=== PATIENT | female | born 1990 | race African-American/Black ===

== ENCOUNTER 2022-11-08 16:33 | Outpatient (CLI) | payer BC, SELFPAY | END 2022-11-08 16:34 | disposition home or self-care (01) | PROVIDERS: PCP Physician Assistant Medical; Visit Provider Physician Assistant Medical | DX: Z01.419 Encounter for gynecological examination (general) (routine) without abnormal findings (principal); E11.9 Type 2 diabetes mellitus without complications; E66.9 Obesity, unspecified; I10 Essential (primary) hypertension | CPT/HCPCS: 80053; 82088; 84244; 84443; 87086 ==

== ENCOUNTER 2022-11-26 09:29 | Outpatient (CLI) | payer BC, SELFPAY | END 2022-11-26 09:30 | disposition home or self-care (01) | PROVIDERS: PCP Physician Assistant Medical; Visit Provider Physician Assistant Medical | DX: E11.9 Type 2 diabetes mellitus without complications (principal); E66.9 Obesity, unspecified; I10 Essential (primary) hypertension | CPT/HCPCS: 82088; 84244 ==

== ENCOUNTER 2022-12-13 07:09 | Outpatient (CLI) | payer BC, SELFPAY ==
--- NOTE | 2022-12-13 07:15 | CRLHL7_ITS ---
For Patients: As a result of the Century Cures Act, medical imaging exams and procedure reports are released immediately into your electronic medical record. You may view this report before your referring provider. If you have questions, please contact your health care provider. INDICATION: Hypertension TECHNIQUE: Grayscale, color Doppler and power Doppler ultrasound exam of the kidneys and renal arteries performed. COMPARISON: None available FINDINGS: BILATERAL RENAL ARTERY DUPLEX ULTRASOUND ABDOMINAL AORTA: Peak systolic velocity = artifactually elevated at 336 cm/s. No aortic aneurysm. RIGHT KIDNEY: 12.4 cm in length. There is no hydronephrosis. Peak systolic velocity = 209 cm/second Renal artery to aortic peak systolic velocity ratio = 0.6, artifactual Resistive indices: 0.6 Renal vein = patent LEFT KIDNEY: 12.0 cm in length. There is no hydronephrosis. Peak systolic velocity = 204 cm/second Renal artery to aortic peak systolic velocity ratio = 0.6, artifactual Resistive indices: 0.6 Renal vein = patent IMPRESSION: Mildly elevated velocities within the mid and distal renal arteries bilaterally. Further evaluation with CTA or MRA recommended. The aortic peak systolic velocity is inaccurate making the renal artery ratios invalid. Dictated by Man Hudson MD @ 12/13/2022 10:59:10 AM (Electronically Signed)
== END 2022-12-13 07:10 | disposition home or self-care (01) ==
PROVIDERS: PCP Physician Assistant Medical; Visit Provider Physician Assistant Medical
DX: I10 Essential (primary) hypertension (principal)
CPT/HCPCS: 76775; 93975

== ENCOUNTER 2023-08-29 10:05 | Outpatient (CLI) | payer BC, SELFPAY | END 2023-08-29 10:06 | disposition home or self-care (01) | LOC: NFLDREF 09-04 20:17 | PROVIDERS: PCP Physician Assistant Medical; Referring Provider Physician Assistant Medical; Visit Provider Physician Assistant Medical | DX: Z00.00 Encounter for general adult medical examination without abnormal findings (principal); E11.9 Type 2 diabetes mellitus without complications; E66.9 Obesity, unspecified; I10 Essential (primary) hypertension; Z13.6 Encounter for screening for cardiovascular disorders | CPT/HCPCS: 80053; 80061 ==

== ENCOUNTER 2023-12-05 08:53 | Outpatient (CLI) | payer BC, SELFPAY | END 2023-12-05 08:54 | disposition home or self-care (01) | LOC: WOUND 08:53 | PROVIDERS: PCP Physician Assistant Medical; Visit Provider Nurse Practitioner Family | DX: E11.621 Type 2 diabetes mellitus with foot ulcer (principal); G99.0 Autonomic neuropathy in diseases classified elsewhere; L97.522 Non-pressure chronic ulcer of other part of left foot with fat layer exposed; Z79.4 Long term (current) use of insulin; Z79.84 Long term (current) use of oral hypoglycemic drugs | CPT/HCPCS: 11042; 87070; 87186; G0463 ==

== ENCOUNTER 2023-12-12 09:59 | Outpatient (CLI) | payer BC, SELFPAY | END 2023-12-12 10:00 | disposition home or self-care (01) | LOC: WOUND 10:00 | PROVIDERS: PCP Physician Assistant Medical; Visit Provider Nurse Practitioner Family | DX: E11.621 Type 2 diabetes mellitus with foot ulcer (principal); L97.522 Non-pressure chronic ulcer of other part of left foot with fat layer exposed; G99.0 Autonomic neuropathy in diseases classified elsewhere; Z79.4 Long term (current) use of insulin; Z79.84 Long term (current) use of oral hypoglycemic drugs | CPT/HCPCS: 97597 ==

== ENCOUNTER 2023-12-19 09:30 | Outpatient (CLI) | payer BC, SELFPAY | END 2023-12-19 09:31 | disposition home or self-care (01) | LOC: WOUND 09:30 | PROVIDERS: PCP Physician Assistant Medical; Visit Provider Nurse Practitioner Family | DX: E11.621 Type 2 diabetes mellitus with foot ulcer (principal); L97.528 Non-pressure chronic ulcer of other part of left foot with other specified severity; G99.0 Autonomic neuropathy in diseases classified elsewhere; Z79.4 Long term (current) use of insulin; Z79.84 Long term (current) use of oral hypoglycemic drugs | CPT/HCPCS: 97602; G0463 ==

== ENCOUNTER 2024-01-02 09:59 | Outpatient (CLI) | payer BC, SELFPAY | END 2024-01-02 10:00 | disposition home or self-care (01) | LOC: WOUND 09:59 | PROVIDERS: PCP Physician Assistant Medical; Visit Provider Nurse Practitioner Family | DX: E11.621 Type 2 diabetes mellitus with foot ulcer (principal); L97.528 Non-pressure chronic ulcer of other part of left foot with other specified severity; Z79.4 Long term (current) use of insulin; Z79.84 Long term (current) use of oral hypoglycemic drugs; Z79.85 Long-term (current) use of injectable non-insulin antidiabetic drugs | CPT/HCPCS: 97597 ==

== ENCOUNTER 2024-01-09 15:15 | Outpatient (CLI) | payer BC, SELFPAY | END 2024-01-09 15:16 | disposition home or self-care (01) | LOC: NFLDREF 01-10 06:04 | PROVIDERS: PCP Physician Assistant Medical; Visit Provider Physician Assistant Medical | DX: E11.9 Type 2 diabetes mellitus without complications (principal); I10 Essential (primary) hypertension | CPT/HCPCS: 82043; 82570 ==

== ENCOUNTER 2024-01-23 10:05 | Outpatient (CLI) | payer BC, SELFPAY | END 2024-01-23 10:06 | disposition home or self-care (01) | LOC: WOUND 10:05 | PROVIDERS: PCP Physician Assistant Medical; Visit Provider Nurse Practitioner Family | DX: E11.621 Type 2 diabetes mellitus with foot ulcer (principal); L97.528 Non-pressure chronic ulcer of other part of left foot with other specified severity; Z79.4 Long term (current) use of insulin; Z79.84 Long term (current) use of oral hypoglycemic drugs | CPT/HCPCS: G0463 ==